=== PATIENT | female | born 1960 | race Caucasian/White ===

== ENCOUNTER 2023-05-13 11:45 | Outpatient (OUT) | payer MEDICAID, SELFPAY ==
[2023-05-13 13:13] LABS: Alanine Aminotransferase 18 U/L (14-59); Albumin Globulin Ratio 0.5; Albumin Level 2.4 g/dL (3.4-5.0); Alkaline Phosphatase 159 U/L (46-116); Aspartate Amino Transferase 35 U/L (15-37); Bilirubin Total 1.1 mg/dL (0.2-1.0); Calcium 8.1 mg/dL (8.5-10.1); Carbon Dioxide 26.9 mmol/L (21.0-32.0); Chloride 109 mmol/L (98-107); Estimated GFR (African America >60 (>=60); Estimated GFR (Non-African Ame >60 (>=60); Globulin 4.9 g/dL; Glucose 100 mg/dL (74-106); Potassium 4.9 mmol/L (3.5-5.1); Sodium 141 mmol/L (136-145); Thyroid Stimulating Hormone 2.187 uIU/mL (0.358-3.740); Total Protein 7.3 g/dL (6.4-8.2)
[2023-05-13 13:22] LABS: Ammonia 170 umol/L (11-32)
[2023-05-14 06:12] LABS: HBsAg Screen Negative (Negative); HIV Ab/p24 Ag Screen Non Reactive (Non Reactive); Hep B Core Ab, IgM Negative (Negative)
[2023-05-14 12:13] LABS: Rapid Plasma Reagin, Quant Non Reactive (NonRea<1:1)
[2023-05-16 18:08] LABS: HCV Ab Reactive (Non Reactive)
== END 2023-05-13 11:46 | disposition home or self-care (01) ==
DX: F11.20 Opioid dependence, uncomplicated (principal)
CPT/HCPCS: 36415; 80053; 82140; 84443; 86592; 86705; 86709; 86803; 87340; 87389; 87522

== ENCOUNTER 2023-05-26 09:08 | Emergency (ER) | payer MEDICAID, SELFPAY ==
[2023-05-26 09:15] VITALS: BP 125/63; PULSE 54; RESP 16; TEMP 36.7; O2SAT 94; BMI 35.5
--- NOTE | 2023-05-26 09:35 | XR_ITS ---
[address] [address] Patient Name: RAYRAY BUSBY MRN: [id number] date: 1960 Sex: F Assigned Patient Location: ER Current Patient Location: ED.MAIN Accession/Order Number: [id number] Exam Date: 05/26/2023 09:45 Report Date: 05/26/2023 10:11 At the request of: CHRISTIANO BARCENAS Procedure: XR chest 1V Exam: Radiographs: XR chest 1V Reason for exam: cough Comparison: None XR/XR chest 1V IMPRESSION: Pulmonary venous hypertension. Chest is otherwise unremarkable. Electronically authenticated by: MEGAN SHETH Date: 05/26/2023 10:11
--- NOTE | 2023-05-26 09:35 | ED.URI1 ---
HPI - URI/Sore Throat General Chief Complaint: Upper Respiratory Infection Stated Complaint: CONGESTION IN CHEST Time Seen by Provider: 05/26/23 09:29 Source: patient Limitations: no limitations History of Present Illness HPI Narrative: 62-year-old female presents to the emergency Department for cough. She's had it for three or four days and she's been coughing up a small amount of phlegm. She states she has not had a fever. She is a smoker but never used inhalers. No hemoptysis or vomiting. Related Data Home Medications Medication Instructions Recorded Confirmed buprenorphine 2 mg-naloxone 0.5 mg 2 film sublingual Q24H 05/26/23 05/26/23 sublingual film guaifenesin 600 mg tablet, 600 mg PO Q12H 05/26/23 05/26/23 extended release 12 hr quetiapine 100 mg tablet 100 mg PO Q24H 05/26/23 05/26/23 zolpidem 5 mg tablet 5 mg PO PRN 05/26/23 05/26/23 Allergies Allergy/AdvReac Type Severity Reaction Status Date / Time No Known Drug Allergies Allergy Verified 05/26/23 09:14 Review of Systems ROS Narrative A ten point review of systems is negative except as noted above. PFSH PFSH Social History Smoking status: Current every day smoker Exam Narrative Exam Narrative: Nurses note and vital signs reviewed and patient is not hypoxic. General: The patient appears well and in no apparent distress. Patient is resting comfortably on cart. Skin: Warm, dry, no pallor noted. There is no rash noted. Head: Normocephalic, atraumatic Eye: Normal conjunctiva, no drainage Ears, Nose, Mouth, and Throat: oral mucosa is moist. Nares patent. Cardiovascular: Regular Rate and Rhythm Respiratory: a few rhonchi present Back: non-tender GI: soft and nontender Musculoskeletal: The patient has no evidence of calf tenderness, no pitting edema, symmetrical pulses noted bilaterally Neurological: A&O, normal speech Psychiatric: Cooperative Constitutional Vital Signs, click to edit/add: Last Vital Signs Temp 98.0 F 05/26/23 09:15 Pulse 54 L 05/26/23 09:15 Resp 16 05/26/23 09:15 BP 125/63 05/26/23 09:15 Pulse Ox 94 L 05/26/23 09:15 O2 Del Method Room Air 05/26/23 09:15 Course Vital Signs Vital signs: Vital Signs Temperature 98.0 F 05/26/23 09:15 Pulse Rate 54 L 05/26/23 09:15 Respiratory Rate 16 05/26/23 09:15 Blood Pressure 125/63 05/26/23 09:15 Pulse Oximetry 94 L 05/26/23 09:15 Oxygen Delivery Method Room Air 05/26/23 09:15 Temperature 98.0 F 05/26/23 09:15 Pulse Rate 54 L 05/26/23 09:15 Respiratory Rate 16 05/26/23 09:15 Blood Pressure 125/63 05/26/23 09:15 Pulse Oximetry 94 L 05/26/23 09:15 Oxygen Delivery Method Room Air 05/26/23 09:15 MDM - URI/Sore Throat MDM Narrative Medical decision making narrative: chest x-ray and Covid test are both negative. Antibiotic not indicated. Treatment diagnosis and follow-up were discussed with the patient. Differential Diagnosis Differential diagnosis: Likely upper respiratory infection, viral infection and other (pneumonia, Covid) Lab Data Attestation: I reviewed the patient's lab results. Labs: Lab Results 05/26/23 Range/Units 09:47 SARS-CoV-2 (PCR) Negative (NEGATIVE) Imaging Data Chest x-ray: Radiologist's impression: Procedure: XR chest 1V Exam: Radiographs: XR chest 1V Reason for exam: cough Comparison: None IMPRESSION: Pulmonary venous hypertension. Chest is otherwise unremarkable. Electronically authenticated by: MEGAN SHETH Date: 05/26/2023 10:11 Discharge Plan Discharge Chief Complaint: Upper Respiratory Infection Clinical Impression: Upper respiratory infection Patient Disposition: Home, Self-Care Time of Disposition Decision: 12:11 Condition: Good Mode of Transportation: Private Vehicle Prescriptions / Home Meds: No Action buprenorphine-naloxone 2-0.5 mg film 2 film sublingual Q24H guaifenesin 600 mg tablet extended release 12hr 600 mg PO Q12H quetiapine 100 mg tablet 100 mg PO Q24H zolpidem 5 mg tablet 5 mg PO PRN Instructions: Upper Respiratory Infection (ED), Viral Syndrome (ED) Stand Alone Forms: Portal Instructions Referrals: Physician,Non-Staff, MD [Primary Care Provider] - 1 week
[2023-05-26 11:43] LABS: SARS-CoV-2 Ag NEGATIVE (NEGATIVE)
[2023-05-26 12:27] VITALS: BP 126/78; PULSE 65; RESP 18; O2SAT 96
[2023-05-27 10:11] LABS: SARS-CoV-2 NAA INVALID (NOT DETECTE)
== END 2023-05-26 12:29 | disposition home or self-care (01) ==
PROVIDERS: Emergency Provider Emergency Medicine
DX: J06.9 Acute upper respiratory infection, unspecified (principal); F17.210 Nicotine dependence, cigarettes, uncomplicated; Z20.822 Contact with and (suspected) exposure to COVID-19; Z79.899 Other long term (current) drug therapy
CPT/HCPCS: 71045; 87635; 87811; 99284; U0003